=== PATIENT | female | born 1955 | race Caucasian/White ===

== ENCOUNTER 2023-12-25 14:03 | Emergency (ER) | payer MEDICARE, SELFPAY ==
[2023-12-25 14:33] VITALS: BP 130/80; PULSE 80; RESP 16; TEMP 36.3; O2SAT 100
--- NOTE | 2023-12-25 14:47 | ED.GENADULT ---
HPI - General Adult General Chief complaint: Urogenital-Female Stated complaint: uti Time Seen by Provider: 12/25/23 14:47 Source: patient, RN notes reviewed and old records reviewed Mode of arrival: ambulatory Limitations: no limitations History of Present Illness HPI narrative: 68-year-old female presents to the [facility] with complaints lower abdominal discomfort that started at 5:00 a.m. this morning. States that she did take a Tylenol and 1 Macrobid that she had. Patient states that she feels more bloated he. Denies any pain or burning with urination. Last bowel movement was this morning which she reports is normal Related Data Home Medications Medication Instructions Recorded Confirmed cyanocobalamin (vitamin B-12) 5,000 mcg sublingual DAILY 06/13/19 12/25/23 5,000 mcg sublingual tablet (Vitamin B-12) omeprazole 20 mg capsule,delayed 20 mg PO DAILY 06/13/19 12/25/23 release cholecalciferol (vitamin D3) 50 2,000 unit PO DAILY 07/26/19 12/25/23 mcg (2,000 unit) tablet melatonin 3 mg tablet 15 mg PO QHS 04/30/22 12/25/23 Allergies Allergy/AdvReac Type Severity Reaction Status Date / Time Sulfa (Sulfonamide Allergy Unknown Unknown Verified 12/25/23 15:01 Antibiotics) Review of Systems Review of Systems: All systems reviewed & are unremarkable except as noted in HPI and below Constitutional: Constitutional: Reports no additional constitutional complaints Eyes: Eyes: Reports no additional eye complaints ENT: Reports system reviewed and no additional complaints, except as documented Cardiovascular: Cardiovascular: Reports no additional cardiovascular complaints, Denies chest pain and Denies dyspnea Respiratory: Respiratory: Reports no additional respiratory complaints, Denies chest congestion, Denies cough and Denies dyspnea Gastrointestinal: Gastrointestinal: Reports as per HPI, Reports abdominal pain, Denies nausea and Denies vomiting Genitourinary: Genitourinary: Reports no additional female genitourinary complaints, Denies nocturia, Denies dysuria, Denies flank pain, Denies urinary incontinence and Denies urinary urgency Musculoskeletal: Musculoskeletal: Reports no additional musculoskeletal complaints Integumentary/Breasts: Skin/Breast: Reports system reviewed and no additional complaints, except as docu Neurologic: Reports system reviewed and no additional complaints, except as documented Psychiatric: Psychiatric: Reports no additional psychiatric complaints Allergic/Immunologic: Allergic/Immunologic: Reports no additional allergic/immunologic complaints [facility] Past Medical History Medical History (Updated 12/25/23 @ 15:05 by Minal Gomez APRN) Anxiety ~2012 GERD without esophagitis ~2012 History of torn meniscus of left knee Ulcerative colitis ~2009. Follows with Dr Thomas. Last colonoscopy 10/2018. Vitamin D deficiency Surgical History Surgical History H/O: hysterectomy ~1994 History of tonsillectomy Age 7 Family History Family History Father Family history of atrial fibrillation pacemaker Mother Cerebrovascular accident brain bleed Son No problems noted. Social History Social History Smoking status: Never smoker Second hand tobacco smoke exposure: No Alcohol intake: current Substance use: never Substance use type: does not use Lack of Transportation: No Lack of Food: Never True Current Housing: I Have Housing Concerned About Future Housing: No Difficulty Paying Gas/Electric Bills: No Difficulty Paying for Meds: No Currently Unemployed: No Education: Trade/Vocational Certificate Difficulty w/ Childcare or Family Care: No Living arrangements: with family Occupation/Education: retired Gender identity (if verbalized by the patient
== END 2023-12-25 15:07 | disposition home or self-care (01) ==
PROVIDERS: Emergency Provider Nurse Practitioner; PCP Family Medicine
DX: R10.31 Right lower quadrant pain (principal); R10.32 Left lower quadrant pain; R14.0 Abdominal distension (gaseous); K21.9 Gastro-esophageal reflux disease without esophagitis; E55.9 Vitamin D deficiency, unspecified
CPT/HCPCS: 81003; 87086; 99213; G0463

== ENCOUNTER 2024-04-12 06:49 | Observation (INO) | payer MEDICARE, SELFPAY ==
--- NOTE | ~2024-04-12 | CT_ITS ---
CT of the Abdomen and Pelvis: Indication: Abdominal pain Technique: 2.5 mm axial scans were obtained through the abdomen and pelvis following intravenous adm inistration of 100 cc of Omnipaque 350. Dose reduction technique was used on this scan by utilizing a utomated exposure control and iterative reconstruction technique. The dose-length product (DLP) was 6 00.45 mGy-cm. Findings: Scans through the lung bases are unremarkable. There is a 3.3 x 2.0 cm hypodense, noncystic mass at the anterior margin of the liver superiorly (axi al image 27), indeterminate. The spleen, pancreas, gallbladder, adrenals and kidneys are within mitzi l limits. There are atherosclerotic calcifications of the aorta. No lymphadenopathy. There is wall thickening and pericolic inflammatory change of the distal sigmoid colon/rectum. Suspec jordyn 2.2 cm intramural abscess along the left side (axial image 128). No free air evident. No bowel ob struction. Images through the pelvis were performed. Urinary bladder unremarkable. Status post probable hysterec linda. No adnexal mass evident. Mild L1 compression L4 present, likely chronic. Impression: Acute diverticulitis versus other colitis at the distal sigmoid colon/rectum. Suspected 2.2 cm intram ural abscess, versus prominent diverticulum, at the left side of the colon in this region. 3.3 x 2.0 cm indeterminate hepatic mass, as noted above. Comparison with any outside CT scans to eval uate for chronicity of this lesion would be useful. In the absence of such comparisons, follow-up pre and postcontrast hepatic MR recommended for further evaluation. Reviewed, dictated and finalized at location . Impression: Acute diverticulitis versus other colitis at the distal sigmoid colon/rectum. S uspected 2.2 cm intramural abscess, versus prominent diverticulum, at the left side of the colon in this region. 3.3 x 2.0 cm indeterminate hepatic mass, as noted above. Comparison with any ou tside CT scans to evaluate for chronicity of this lesion would be useful. In th e absence of such comparisons, follow-up pre and postcontrast hepatic MR recomm ended for further evaluation.
[2024-04-12 07:06] VITALS: BP 138/76; PULSE 100; RESP 16; TEMP 36.4; O2SAT 99
[2024-04-12 07:10] LABS: Basophils Absolute Auto 0.1 K/mm3 (0.0-0.1); Basophils Percent Auto 0.4 % (0.2-1.2); Eosinophils Absolute Auto 0.2 K/mm3 (0-0.3); Eosinophils Percent Auto 1.1 % (0-4.4); Hematocrit 43.6 % (37.0-47.0); Hemoglobin 15.1 g/dL (12.0-15.0); Immature Granulocyte Absolute 0.08 K/mm3 (0.00-0.031); Immature Granulocyte Percent A 0.6 % (0-0.5); Lymphocytes Absolute Auto 2.55 K/mm3 (0.9-3.2); Lymphocytes Percent Auto 18.8 % (18.3-44.2); Mean Corpuscular HGB Conc 34.6 g/dl (32-36); Mean Corpuscular Hemoglobin 31.5 pg (26-34); Mean Platelet Volume 8.5 fl (7.4-10.4); Monocytes Absolute Auto 1.2 K/mm3 (0.1-0.6); Monocytes Percent Auto 9.1 % (2.6-8.5); Neutrophils Absolute Auto 9.5 K/mm3 (1.3-6.7); Platelet Count Result 330 k/mm3 (150-375); Red Blood Count 4.79 M/mm3 (4.2-5.4); Red Cell Distribution Width 12.3 % (11.5-14.5); White Blood Count 13.6 K/mm3 (4.5-10.0)
[2024-04-12 07:20] LABS: Alanine Aminotransferase 15 U/L (6-35); Albumin Level 4.1 g/dL (3.5-5.1); Alkaline Phosphatase 67 U/L (38-126); Anion Gap 10 mmol/L (4-12); Aspartate Amino Transferase 22 U/L (14-36); Bilirubin,Total 1.2 mg/dL (0.2-1.3); Blood Urea Nitrogen 12 mg/dL (7-17); Carbon Dioxide 22 mmol/L (22-30); Chloride 106 mmol/L (98-107); Estimated CRCL calculation 64 ml/min; Estimated Glomerular Filt Rate > 60; Glucose 98 mg/dL (65-110); Lipase 102 U/L (23-300); Potassium 3.9 mmol/L (3.4-5.0); Sodium 138 mmol/L (137-145)
[2024-04-12 07:30] LABS: Add Urine Microscopic? YES; Appearance Urine Cloudy (Clear); Bacteria Urine 3+ /hpf; Bilirubin Urine Negative (Negative); Blood Urine Negative (Negative); Color Urine Dark Yellow (Yellow); Glucose Urine UA Negative (Negative); Ketones Urine 1+ mg/dL (Negative); Leukocyte Esterase Ur Trace LEU/UL (Negative); Need Manual Microscopic Reviewed; Nitrate Urine Negative (Negative); Protein Urine Negative (Negative); RBC Urine 0-2 /hpf (0-2); Specific Grav Ur 1.015 (1.001-1.035); Squamous Epithelial Cell Urine Few /hpf (Few); Urobilinogen Urine 0.2 mg/dL (<2.0); pH Urine 7.5 (5.0-9.0)
[2024-04-12 07:34] LABS: Amorphous Sediment Urine Few
--- NOTE | 2024-04-12 07:49 | ED.ABDPAIN ---
HPI - Abdominal Pain General Chief Complaint: Abdominal Pain Stated Complaint: stomach cramps Time Seen by Provider: 04/12/24 07:18 History of Present Illness HPI narrative: Pt presents with lower abdominal pain for two days. Pt thinks it is constipation as it is intermittent and she has not had a full BM for several days. Pt took a recent trip and did not move bowels and when she got home she still did not so she took laxative yesterday but no results. Pt also has history of UC but says this is in remission. Pt deneis fever or black or bloody stools. Related Data Home Medications Medication Instructions Recorded Confirmed cyanocobalamin (vitamin B-12) 5,000 mcg PO DAILY 06/13/19 04/12/24 5,000 mcg sublingual tablet (Vitamin B-12) omeprazole 20 mg capsule,delayed 20 mg PO DAILY 06/13/19 04/12/24 release cholecalciferol (vitamin D3) 50 2,000 unit PO DAILY 07/26/19 04/12/24 mcg (2,000 unit) tablet melatonin 3 mg tablet 15 mg PO QHS 04/30/22 04/12/24 Allergies Allergy/AdvReac Type Severity Reaction Status Date / Time Sulfa (Sulfonamide Allergy Unknown Gastrointestinal Verified 04/12/24 14:29 Antibiotics) Upset Review of Systems Review of Systems: All systems reviewed & are unremarkable except as noted in HPI and below PMFSH Past Medical History Medical History (Updated 04/12/24 @ 14:53 by Juana Moser PA-C) Anxiety GERD without esophagitis History of endometriosis History of torn meniscus of left knee Ulcerative colitis (2009) Last colonoscopy 10/2018. Vitamin D deficiency Surgical History Surgical History (Updated 04/12/24 @ 14:44 by Juana Moser PA-C) History of hysterectomy (1994) History of laparoscopy For endometriosis History of tonsillectomy Age 7 Family History Family History Father Family history of atrial fibrillation pacemaker Mother Cerebrovascular accident brain bleed Son No problems noted. Social History Social History (Updated 04/12/24 @ 14:45 by Juana Moser PA-C) Social History: Surrogate medical decision maker: Federico Doan, spouse. Code status: Full code. Smoking status: Never smoker Second hand tobacco smoke exposure: No Alcohol intake: current Drinks per week: 2 Substance use: never Substance use type: does not use Do You Feel Safe in your Home?: Yes Lack of Transportation: No Lack of Food: Never True Current Housing: I Have Housing Concerned About Future Housing: No Difficulty Paying Gas/Electric Bills: No Difficulty Paying for Meds: No Currently Unemployed: No Education: Associate Degree Difficulty w/ Childcare or Family Care: No Living arrangements: with family Occupation/Education: retired Spiritual care concerns: No Agree to blood products: Yes Exam Const: General: healthy appearing and no acute distress Nutritional Appearance: well nourished Orientation/consciousness: patient oriented x3 Limitations: no limitations Resp: Effort & Inspection: normal respiratory effort Auscultation: clear to auscultation bilaterally Cardio: Rate: regular rate Rhythm: regular rhythm GI: GI Palp: Yes Soft to palpation and Yes Tenderness to palpation present (GI) (mild lower abdominal pain) Auscultation: normal bowel sounds Back/Spine/Pelvis: Back: no CVA tenderness Skin: General skin exam: normal color Rashes: no rashes Wounds: no wounds Neuro: General: patient oriented x3, moves all extremities, no meningeal signs, no focal motor deficits and CN's II-XI intact bilaterally Cranial nerves: Yes Nystagmus not present Speech: normal speech Extrem: General: normal to inspection and no clubbing, cyanosis or edema Psych: Mental Status: mental status grossly normal Affect: normal affect Attitude: cooperative Course Vital Signs Vital signs: Vital Signs Temperature 97.6 F 04/12/24 07:06
[2024-04-12 08:00] VITALS: BP 126/72; PULSE 81; RESP 16; TEMP 36.6; O2SAT 95
[2024-04-12] MEDS: ONDANSETRON INJ 4 MG/2 ML VIAL IV PUSH (08:12)
[2024-04-12] MEDS: fentaNYL CITRATE INJ (*CRX) 100 MCG/2 ML VIAL 50 MCG IV PUSH (08:13)
[2024-04-12 09:00] VITALS: BP 136/73; PULSE 79; RESP 18; O2SAT 96
[2024-04-12 10:00] VITALS: BP 119/64; PULSE 80; RESP 18; O2SAT 96
--- NOTE | 2024-04-12 13:40 | PC.NURSE ---
Report called to FRANTZ Dey. All questions answered at this time.
[2024-04-12] MEDS: PIPERACILLIN/TAZ 4.5G/NS 100ML 4.5 GM/100 ML BAG IVPB ×3 (13:44→23:32)
--- NOTE | 2024-04-12 13:50 | PM.IMHP ---
H&P: HPI History of Present Illness Date/Time: 04/12/24 13:50 Chief Complaint: Abdominal pain. Narrative: This is very pleasant 68-year-old female with ulcerative colitis which has been in remission for several years on balsalazide, anxiety, and gastroesophageal reflux disease who presented to the emergency department via private vehicle for evaluation of abdominal pain. The patient provides the following history. She gives a several day history of soreness in the mid to lower part of the abdomen. Initially she attributed her symptoms to constipation as she has not had a good bowel movement for several days however stool softeners and laxatives did not provide her with much relief. She reports chills but denies fever and sweats. Appetite has been fair and she denies nausea and vomiting. She has not noticed any blood or mucus in the stool. No dysuria or hematuria. In the ED: She was afebrile on arrival with stable vital signs. CMP and CBC were pretty unremarkable aside from a WBC count of 13.6 and hemoglobin of 15.1. Urinalysis was positive for 1+ ketones, trace leukocyte esterase, 11 to 20 WBC, and 3+ bacteria. Some sediment squamous cells were noted on microscopy. CT of the abdomen and pelvis showed acute diverticulitis versus other colitis at the distal sigmoid colon/rectum with a suspected 2.2 cm intramural abscess versus prominent diverticulum. 3.3 x 2.0 cm intermediate hepatic masses also noted. She was given a dose piperacillin/tazobactam is being admitted in this setting for further treatment. Review of Systems Review of Systems: 12 systems were reviewed and are negative except for as per HPI. [facility] Past Medical History Medical History (Updated 04/12/24 @ 14:53 by Juana Moser PA-C) Anxiety GERD without esophagitis History of endometriosis History of torn meniscus of left knee Ulcerative colitis (2009) Last colonoscopy 10/2018. Vitamin D deficiency Surgical History Surgical History (Updated 04/12/24 @ 14:44 by Juana Moser PA-C) History of hysterectomy (1994) History of laparoscopy For endometriosis History of tonsillectomy Age 7 Family History Family History Father Family history of atrial fibrillation pacemaker Mother Cerebrovascular accident brain bleed Son No problems noted. Social History Social History (Updated 04/12/24 @ 14:45 by Juana Moser PA-C) Social History: Surrogate medical decision maker: Federico Doan, spouse. Code status: Full code. Smoking status: Never smoker Second hand tobacco smoke exposure: No Alcohol intake: current Drinks per week: 2 Substance use: never Substance use type: does not use Do You Feel Safe in your Home?: Yes Lack of Transportation: No Lack of Food: Never True Current Housing: I Have Housing Concerned About Future Housing: No Difficulty Paying Gas/Electric Bills: No Difficulty Paying for Meds: No Currently Unemployed: No Education: Associate Degree Difficulty w/ Childcare or Family Care: No Living arrangements: with family Occupation/Education: retired Spiritual care concerns: No Agree to blood products: Yes Meds Home Medications and Allergies Home Medications Medication Instructions Recorded Confirmed Type cyanocobalamin (vitamin B-12) 5,000 mcg PO DAILY 06/13/19 04/12/24 History 5,000 mcg sublingual tablet (Vitamin B-12) omeprazole 20 mg capsule,delayed 20 mg PO DAILY 06/13/19 04/12/24 History release cholecalciferol (vitamin D3) 50 2,000 unit PO DAILY 07/26/19 04/12/24 History mcg (2,000 unit) tablet melatonin 3 mg tablet 15 mg PO QHS 04/30/22 04/12/24 History buspirone 5 mg tablet 5 mg PO DAILY PRN anxiety #90 tabs 06/15/23 04/12/24 Rx balsalazide 750 mg capsule 1,500 mg PO BID 3 months #360 caps 03/30/24 04/12/24 Rx Allergies Allergy/AdvReac Type Severity Reaction Statu
[2024-04-12 14:00] VITALS: BP 168/62; PULSE 83; RESP 14; TEMP 36.3; O2SAT 99
[2024-04-12 14:08] VITALS: BMI 28.2
--- NOTE | 2024-04-12 14:13 | ADMGEN ---
This patient, Ciara Doan, was admitted to 3 Med Surg Room 315-01. Patient/family oriented to hospital policies and general routines including ID bracelet, bed and alarms, visiting hours, pain management, procedures, bathroom and other care routines, personal items, smoking policy, room service/diet, and visiting hours. Information on how to activate the Rapid Response Team has been discussed. Patient/Family are encouraged to report perceived risks to care and to ask questions if they do not understand what they are told or what they should do. Report from Estephania.
--- NOTE | 2024-04-12 14:17 | PM.CNGS ---
Assessment and Plan Assessment and plan (1) Diverticulitis: Code(s): K57.92 - Diverticulitis of intestine, part unspecified, without perforation or abscess without bleeding Status: Acute Assessment and Plan: CT scan showed distal sigmoid diverticulitis versus colitis with possible small intramural abscess versus prominent diverticulum. No evidence of perforation. This is her first episode of diverticulitis. We would recommend to continue conservative treatment with IV antibiotics. She has a moderate amount of tenderness on exam, but no diffuse peritoneal signs. No indication for surgical intervention at this time. Okay to start a clear liquid diet today. Repeat labs and exam tomorrow. (2) Liver mass: Code(s): R16.0 - Hepatomegaly, not elsewhere classified Status: Acute Assessment and Plan: Liver mass found on CT. Will need an hepatic MR to evaluate further, but this can be done as an outpatient. (3) Ulcerative colitis: Qualifiers: Ulcerative colitis location: unspecified ulcerative colitis location Digestive disease complication type: without complication Qualified Code(s): K51.90 - Ulcerative colitis, unspecified, without complications Code(s): K51.90 - Ulcerative colitis, unspecified, without complications Status: Chronic Assessment and Plan: Hx of ulcerative colitis and in remission for many years. She takes balsalazide twice daily. Her last colonoscopy was 4-5 years ago. She will likely need another colonoscopy in the next 4-6 weeks after this resolves. Plan I have discussed the patient's case and plan of care with Dr. Weiss. Thank you for allowing us to see the patient in consultation and we will continue to follow along with you. History of Present Illness Consult details Consult date: 04/12/24 Reason for consult: other (Diverticulitis with abscess) Requesting physician: Sonia Lane III, DO Narrative: This is a 68-year-old woman who presented to the ED today with complaints of left lower quadrant abdominal pain x 3 days. She first noticed mild left lower quadrant abdominal pain and bloating on Thursday, and initially thought this was related to constipation. She was vacationing in [place] and had not been eating her typical diet. She flew home Thursday and tried taking laxatives, because she still felt bloated and had mild pain. She had multiple bowel movements without improvement in her symptoms. Her pain has remained constant without any alleviating factors, therefore she came into the ED for evaluation. [place] [id number] scan of the abdomen and pelvis showed diverticulitis versus colitis of the distal sigmoid/rectum with a possible 2.2 cm intramural abscess verses prominent diverticulum. Also incidentally seen is a 3.3 x 2.0 cm liver mass. Our service was consulted for diverticulitis with possible abscess. She is seen in the ED. She denies any previous episodes of diverticulitis. She has a history of ulcerative colitis and has been in remission for many years. She is currently taking balsalazide. Her last colonoscopy was about 4-5 years ago and reportedly negative. She was told she needs another screening colonoscopy this year. Review of Systems Review of Systems: All systems reviewed & are unremarkable except as noted in HPI and below PMFSH Past Medical History Medical History Anxiety ~2012 GERD without esophagitis ~2012 History of endometriosis History of torn meniscus of left knee Ulcerative colitis ~2009. Follows with Dr Thomas. Last colonoscopy 10/2018. Vitamin D deficiency Surgical History Surgical History H/O: hysterectomy ~1994 History of laparoscopy For endometriosis History of tonsillectomy Age 7 Family History Family History (Reviewed 04/12/24 @ 14:30 by Manolo Cedeno
[2024-04-12] MEDS: LACTATED RINGERS 1,000 ML 80 ML IV CONT (15:28)
--- NOTE | 2024-04-12 15:58 | PHAR ---
Pharmacy verified home med: * Use From Home * Balsalazide 750 mg capsule take 4 capsules by mouth once daily in the morning description: large, cream colored capsule with APO B750
[2024-04-12] MEDS: BALSALAZIDE 750 MG 3000 EACH PO (16:00)
[2024-04-12] MEDS: MELATONIN 5 MG TABLET 15 MG PO (20:07)
[2024-04-12 21:50] VITALS: BP 131/70; PULSE 72; RESP 16; TEMP 36.8; O2SAT 95
[2024-04-13] MEDS: ACETAMINOPHEN 325 MG TABLET 650 MG PO (05:13)
[2024-04-13] MEDS: PIPERACILLIN/TAZ 4.5G/NS 100ML 4.5 GM/100 ML BAG IVPB ×2 (05:13→13:00)
[2024-04-13 06:00] VITALS: BP 126/69; PULSE 83; RESP 16; TEMP 36.6; O2SAT 95
[2024-04-13 07:02] LABS: Hematocrit 41.2 % (37.0-47.0); Hemoglobin 13.5 g/dL (12.0-15.0); Mean Corpuscular HGB Conc 32.8 g/dl (32-36); Mean Corpuscular Hemoglobin 30.6 pg (26-34); Mean Corpuscular Volume 93.4 fl (80-100); Mean Platelet Volume 8.5 fl (7.4-10.4); Platelet Count Result 303 k/mm3 (150-375); Red Blood Count 4.41 M/mm3 (4.2-5.4); Red Cell Distribution Width 12.1 % (11.5-14.5); White Blood Count 8.9 K/mm3 (4.5-10.0)
[2024-04-13 07:20] VITALS: O2SAT 96
[2024-04-13 07:30] LABS: Anion Gap 7 mmol/L (4-12); Blood Urea Nitrogen 10 mg/dL (7-17); Calcium 8.6 mg/dL (8.4-10.2); Carbon Dioxide 27 mmol/L (22-30); Chloride 104 mmol/L (98-107); Estimated CRCL calculation 63 ml/min; Estimated Glomerular Filt Rate > 60; Glucose 91 mg/dL (65-110); Magnesium 2.4 mg/dL (1.6-2.3); Potassium 4.1 mmol/L (3.4-5.0); Sodium 138 mmol/L (137-145)
--- NOTE | 2024-04-13 07:40 | PM.IMPN ---
Progress Note: A&P Assessment and Plan (1) Diverticulitis: Code(s): K57.92 - Diverticulitis of intestine, part unspecified, without perforation or abscess without bleeding Status: Acute Assessment and Plan: - surgery was consulted ...clear liquid diet at this time and will follow with serial abdominal exams and labs. Consider repeat CT if peritoneal signs or fevers develop. Otherwise can gradually advance diet over the next couple days and hopefully discharge home on a course of oral antibiotics. (2) Liver mass: Code(s): R16.0 - Hepatomegaly, not elsewhere classified Status: Acute (3) Ulcerative colitis: Onset Date: 2009 Qualifiers: Digestive disease complication type: without complication Ulcerative colitis location: unspecified ulcerative colitis location Qualified Code(s): K51.90 - Ulcerative colitis, unspecified, without complications Code(s): K51.90 - Ulcerative colitis, unspecified, without complications Status: Chronic (4) Abnormal urinalysis: Code(s): R82.90 - Unspecified abnormal findings in urine Status: Acute (5) GERD without esophagitis: Code(s): K21.9 - Gastro-esophageal reflux disease without esophagitis Status: Chronic (6) Anxiety: Code(s): F41.9 - Anxiety disorder, unspecified Status: Chronic Plan The patient presented to the emergency department for evaluation of several days of abdominal soreness and feelings of constipation as detailed in HPI. Labs, imaging, EKG, and all reports were personally reviewed. CT scan shows evidence of sigmoid diverticulitis versus colitis with possible small intramural abscess versus prominent diverticulum. No peritoneal signs on examination. Surgery has been consulted and they suggest serial abdominal exams and antibiotics for now. She has been started on a clear liquid diet. Continue Zosyn. Analgesics and antiemetics are available as needed. Incidentally a hepatic mass was noted on CT scan of which she will need a hepatic MR for further evaluation which can be done as an outpatient as this is likely unrelated to her current problem. Her ulcerative colitis has been in remission for years on balsalazide. She will need referral to GI on discharge for colonoscopy in the next 6 weeks or so following resolution of diverticulitis as she has not had 1 done since 2019. Urinalysis is abnormal with trace leukocyte esterase, 11 to 20 WBC, and 3+ bacteria however the specimen looks contaminated with squamous cells and sediment and she has no symptoms to suggest active UTI. Time Spent With Patient Time with patient: Greater than 35 minutes Subjective Date/time seen: 04/13/24 07:40 Interval history: 04/13 pt is seen and examined. Gen surg was consulted- recommendations to advance diet- monitor- Agree with clear liquid diet at this time and will follow with serial abdominal exams and labs. Consider repeat CT if peritoneal signs or fevers develop. Otherwise can gradually advance diet over the next couple days and hopefully discharge home on a course of oral antibiotics. Review of Systems Review of Systems: 12 systems were reviewed and are negative except for as per HPI. Exam Narrative: General: Well-developed, nontoxic-appearing female HEENT: PERRL, EOMI. Sclera anicteric. Tacky mucous membranes. Neck: Supple. Respiratory: Lungs are clear to auscultation bilaterally. Cardiovascular: Regular rate and rhythm with S1-S2. Gastrointestinal: Abdomen is soft and slightly distended with positive bowel sounds. She is tender to palpation mostly on the left side of the abdomen lower quadrant. No guarding or rebound tenderness. No organomegaly or masses palpated. Skin: Warm, dry, and milton. Extremities: No cyanosis, clubbing, or edema. Radial and pedal pulses intact. Neurological: Alert. Cranial nerves 2-12 are grossly intact. No gross focal deficits to casual conversation. Psychiatric: Pleasan
[2024-04-13] MEDS: CYANOCOBALAMIN 1,000 MCG TABLET 5000 MCG PO (08:26)
[2024-04-13] MEDS: CHOLECALCIFEROL 1,000 UNITS TABLET 2000 UNITS PO (08:26)
[2024-04-13] MEDS: BALSALAZIDE 750 MG 3000 EACH PO (08:29)
[2024-04-13] MEDS: PANTOPRAZOLE 40 MG TABLET PO (08:30)
--- NOTE | 2024-04-13 10:59 | PM.PNGS ---
Progress Note: A&P Assessment and Plan (1) Diverticulitis: Code(s): K57.92 - Diverticulitis of intestine, part unspecified, without perforation or abscess without bleeding Status: Acute Assessment and Plan: Clinically improving with antibiotics Advanced diet as tolerated to a low-fiber diet Consult dietitian for education Okay to discharge the patient on oral antibiotics later today if she is tolerating a low-fiber diet (2) Liver mass: Code(s): R16.0 - Hepatomegaly, not elsewhere classified Status: Acute Assessment and Plan: Liver mass found on CT. Will need an hepatic MR to evaluate further, but this can be done as an outpatient. (3) Ulcerative colitis: Onset Date: 2009 Qualifiers: Ulcerative colitis location: unspecified ulcerative colitis location Digestive disease complication type: without complication Qualified Code(s): K51.90 - Ulcerative colitis, unspecified, without complications Code(s): K51.90 - Ulcerative colitis, unspecified, without complications Status: Chronic Assessment and Plan: Hx of ulcerative colitis and in remission for many years. She takes balsalazide twice daily, which was continued. Her last colonoscopy was 4-5 years ago. She will likely need another colonoscopy in the next 4-6 weeks after this resolves. Subjective Subjective Date/Time Seen: 04/13/24 10:59 Patient reports: no new complaints, feels better, pain is less, tolerating liquids well, flatus, no bowel movement (last BM yesterday in ED after enema) and afebrile Interval history: Patient feeling better today. No abdominal pain this morning, only tenderness to palpation in the suprapubic area. Exam Const: General: comfortable and no acute distress Orientation/consciousness: patient oriented x3 GI: Inspection: non-distended GI Palp: Yes Soft to palpation, Yes Tenderness to palpation present (GI) (mild suprapubic tenderness, improved) and No Guarding due to palpation present (GI) Auscultation: normal bowel sounds Objective Data Vital Signs Vital Signs: Vital Signs - 24 hr 04/12/24 14:00 04/12/24 21:50 04/13/24 06:00 Temperature 97.3 F L 98.2 F 97.8 F Pulse Rate 83 72 83 Respiratory Rate 14 16 16 Blood Pressure 168/62 H 131/70 126/69 Pulse Oximetry 99 95 95 Oxygen Delivery Fraction of Inspired Oxygen 04/13/24 07:20 04/13/24 08:00 Temperature Pulse Rate Respiratory Rate Blood Pressure Pulse Oximetry 96 Oxygen Delivery Room Air Room Air Fraction of Inspired Oxygen 21 Intake/Output Intake/Output: Intake & Output 04/10/24 04/11/24 04/12/24 04/13/24 23:59 23:59 23:59 23:59 Intake Total 680 1840 Balance 680 1840 Meds/Results Medications: Active Medications Generic Name Dose Route Start Last Admin Trade Name Freq PRN Reason Stop Dose Admin Acetaminophen 650 mg 04/12/24 14:36 04/13/24 05:13 Acetaminophen 325 Mg Tablet PO 650 mg Q6H PRN Administration Mild Pain (1-3) or Fever Hydrocodone Bitart/Acetaminophen 1 tab 04/12/24 14:36 Hydrocodone/Acetaminophen (*Crx) 5-325 Mg Tablet PO Q6H PRN Pain Rated 4-6 Buspirone HCl 5 mg 04/12/24 14:54 Buspirone Hcl 5 Mg Tablet PO DAILY PRN anxiety Cyanocobalamin 5,000 mcg 04/13/24 09:00 04/13/24 08:26 Cyanocobalamin 1,000 Mcg Tablet PO 5,000 mcg DAILY NONI Administration Enoxaparin Sodium 40 mg 04/13/24 09:00 04/13/24 08:26 Enoxaparin 40 Mg/0.4 Ml Syringe SUB-Q Not Given DAILY NONI Piperacillin Sod/Tazobactam Sod 4.5 gm in 100 mls @ 200 mls/hr 04/12/24 18:00 04/13/24 05:43 Zosyn 4.5 Gm/Ns 100 Ml IVPB Infused Q6HR NONI Infusion Melatonin 15 mg 04/12/24 21:00 04/12/24 20:07 Melatonin 5 Mg Tablet PO 15 mg QHS NONI Administration Morphine Sulfate 2 mg 04/12/24 14:36 Morphine Sulfate (*Crx) 2 Mg/Ml Inj IV PUSH Q4H PRN Pain Rated 7-10 * Home Med * 3,000 mg 04/12/24 15:5
[2024-04-13 14:00] VITALS: BP 116/60; PULSE 83; RESP 18; TEMP 36.3; O2SAT 98
--- NOTE | 2024-04-13 14:19 | PM.DS ---
DS: Admitting Diagnosis Discharge Date 04/13 Admitting Diagnosis abd pain DS: Discharge Diagnosis Discharge Diagnosis (1) Diverticulitis: Code(s): K57.92 - Diverticulitis of intestine, part unspecified, without perforation or abscess without bleeding Status: Acute Assessment and Plan: - surgery was consulted ...clear liquid diet at this time and will follow with serial abdominal exams and labs. Consider repeat CT if peritoneal signs or fevers develop. Otherwise can gradually advance diet over the next couple days and hopefully discharge home on a course of oral antibiotics. (2) Liver mass: Code(s): R16.0 - Hepatomegaly, not elsewhere classified Status: Acute (3) Ulcerative colitis: Onset Date: 2009 Qualifiers: Digestive disease complication type: without complication Ulcerative colitis location: unspecified ulcerative colitis location Qualified Code(s): K51.90 - Ulcerative colitis, unspecified, without complications Code(s): K51.90 - Ulcerative colitis, unspecified, without complications Status: Chronic (4) Abnormal urinalysis: Code(s): R82.90 - Unspecified abnormal findings in urine Status: Acute (5) GERD without esophagitis: Code(s): K21.9 - Gastro-esophageal reflux disease without esophagitis Status: Chronic (6) Anxiety: Code(s): F41.9 - Anxiety disorder, unspecified Status: Chronic Plan The patient presented to the emergency department for evaluation of several days of abdominal soreness and feelings of constipation as detailed in HPI. Labs, imaging, EKG, and all reports were personally reviewed. CT scan shows evidence of sigmoid diverticulitis versus colitis with possible small intramural abscess versus prominent diverticulum. No peritoneal signs on examination. Surgery has been consulted and they suggest serial abdominal exams and antibiotics for now. She has been started on a clear liquid diet. Continue Zosyn. Analgesics and antiemetics are available as needed. Incidentally a hepatic mass was noted on CT scan of which she will need a hepatic MR for further evaluation which can be done as an outpatient as this is likely unrelated to her current problem. Her ulcerative colitis has been in remission for years on balsalazide. She will need referral to GI on discharge for colonoscopy in the next 6 weeks or so following resolution of diverticulitis as she has not had 1 done since 2019. Urinalysis is abnormal with trace leukocyte esterase, 11 to 20 WBC, and 3+ bacteria however the specimen looks contaminated with squamous cells and sediment and she has no symptoms to suggest active UTI. DS: Summary Hospital Course Hospital Course: Pt was admitted for Diverticulitis of intestine: - she clinically improved with antibiotics - Advancing diet as tolerated to a low-fiber diet- per surgery -okay to discharge on oral antibiotics later today if she is tolerating a low-fiber diet - Liver mass: Liver mass found on CT. Will need an hepatic MR to evaluate further, but this can be done as an outpatient. - Ulcerative colitis location: unspecified ulcerative colitis location Her last colonoscopy was 4-5 years ago. She will likely need another colonoscopy in the next 4-6 weeks after this resolves. Status at Discharge Functional status at discharge: independent ambulation Overall status at discharge: patient is progressing back to baseline Time Spent with Patient Time attestation: Total time spent providing and/or coordinating discharge services: Time spent: Greater than 30 minutes Exam Narrative: General: Well-developed, nontoxic-appearing female HEENT: PERRL, EOMI. Sclera anicteric. Tacky mucous membranes. Neck: Supple. Respiratory: Lungs are clear to auscultation bilaterally. Cardiovascular: Regular rate and rhythm with S1-S2. Gastrointestinal: Abdomen is soft and slightly distended with positive bowel sounds.
== END 2024-04-13 17:30 | disposition home or self-care (01) ==
LOC: ANHED 12:39 → ANH3MEDSUR 13:24
PROVIDERS: Emergency Medicine; Nurse Practitioner Family; Physician Assistant; Admitting Provider Internal Medicine; Emergency Provider Emergency Medicine; PCP Family Medicine; Visit Provider Internal Medicine
DX: K57.92 Diverticulitis of intestine, part unspecified, without perforation or abscess without bleeding (principal); R16.0 Hepatomegaly, not elsewhere classified; K51.90 Ulcerative colitis, unspecified, without complications; R82.90 Unspecified abnormal findings in urine; K21.9 Gastro-esophageal reflux disease without esophagitis; F41.9 Anxiety disorder, unspecified; E55.9 Vitamin D deficiency, unspecified; Z79.899 Other long term (current) drug therapy
CPT/HCPCS: 36415; 74177; 80048; 80053; 81001; 83690; 83735; 85025; 85027; 87086; 96365; 96375; 99285; A9270; G0378; J2405; J2543; J3010; J7120; Q9967

== ENCOUNTER 2024-05-21 08:30 | Outpatient (CLI) | payer MEDICARE, SELFPAY ==
--- NOTE | ~2024-05-21 | MR_ITS ---
EXAMINATION: MR abdomen wo/w con DATE: 05/21/2024 10:33 INDICATION: Hepatomegaly, not elsewhere classified. Liver mass. TECHNIQUE: Magnetic resonance imaging (MRI) of the abdomen was performed without and with 16 mL Multi Binta intravenous contrast. COMPARISON: CT abdomen and pelvis 04/12/2024 FINDINGS: There is a 3.9 cm cyst in the liver. There is a gallstone in the gallbladder, which is normal in size . The spleen, pancreas, and adrenal glands are normal. There are cysts in the kidneys measuring up to 4 mm. There are no dilated loops of bowel. There are no pathologically enlarged lymph nodes. There i s no free intraperitoneal fluid. IMPRESSION: 1. 3.9 cm benign cyst in the liver correlating with the CT abnormality. 2. Cholelithiasis. Reviewed, dictated and finalized at location A. [facility]
--- NOTE | ~2024-05-21 | MR_ITS ---
EXAMINATION: MR pelvis wo/w con DATE: 05/21/2024 10:33 INDICATION: Diverticulitis of large intestine with perforation and abscess. TECHNIQUE: Magnetic resonance imaging (MRI) of the pelvis was performed without and with 16 mL MultiH ance intravenous contrast. COMPARISON: CT abdomen and pelvis 04/12/2024 FINDINGS: There are no dilated loops of bowel. There is diverticulosis of the colon without evidence of diverti culitis. There is no ascites. There are no pathologically enlarged lymph nodes. IMPRESSION: 1. No abscess. Reviewed, dictated and finalized at location A. [facility] IMPRESSION: 1. No abscess.
== END 2024-05-21 08:31 | disposition home or self-care (01) ==
PROVIDERS: PCP Family Medicine; Visit Provider Family Medicine
DX: R16.0 Hepatomegaly, not elsewhere classified (principal); K57.20 Diverticulitis of large intestine with perforation and abscess without bleeding; K80.20 Calculus of gallbladder without cholecystitis without obstruction
CPT/HCPCS: 72197; 74183; A9577

== ENCOUNTER 2024-06-15 03:04 | Day surgery (SDC) | payer MEDICARE, SELFPAY ==
[2024-05-25 09:03] VITALS: BMI 25.9
[2024-06-15 06:18] VITALS: BP 135/74; PULSE 94; RESP 20; TEMP 36.2; O2SAT 100
[2024-06-15] MEDS: LACTATED RINGERS 1,000 ML 150 ML IV CONT (06:30)
--- NOTE | 2024-06-15 07:23 | P.PNAN_ITS ---
Anes - Initial Pre Proc Eval Procedure: Operation Date: 06/15/24 07:30 Proposed Procedures p Colonoscopy - Chriss العلي MD Date/Time: 06/15/24 07:23 Surgeon: Chriss العلي MD Pre Op Diagnosis: diverticulitis with perforation and abscess w/o Patient Data Age: 69 Gender: F Height: 1.7 m Weight: 75.3 kg Last Vital Signs Temp 36.2 C L 06/15/24 06:18 Pulse 94 06/15/24 06:18 Resp 20 06/15/24 06:18 BP 135/74 06/15/24 06:18 Pulse Ox 100 06/15/24 06:18 O2 Del Method Room Air 06/15/24 06:18 Allergies Allergy/AdvReac Type Severity Reaction Status Date / Time Sulfa (Sulfonamide Allergy Unknown Gastrointestinal Verified 06/15/24 06:13 Antibiotics) Upset Home Medications ?Medication ?Instructions ?Recorded ?Confirmed ?Type cyanocobalamin (vitamin B-12) 5,000 mcg PO DAILY 06/13/19 06/15/24 History 5,000 mcg sublingual tablet (Vitamin B-12) omeprazole 20 mg capsule,delayed 20 mg PO DAILY 06/13/19 06/15/24 History release cholecalciferol (vitamin D3) 50 2,000 unit PO DAILY 07/26/19 06/15/24 History mcg (2,000 unit) tablet buspirone 5 mg tablet 5 mg PO DAILY PRN anxiety #90 tabs 06/15/23 05/25/24 Rx melatonin 3 mg tablet 3 mg PO QHS 04/26/24 06/15/24 History prasterone (dhea) 10 mg tablet 10 mg PO DAILY 04/26/24 06/15/24 History progesterone micronized 100 mg 100 mg PO QAM 04/26/24 06/15/24 History capsule testosterone 50 mg implant pellet 65 mg implant DAILY 04/26/24 06/15/24 History thyroid (pork) 150 mg capsule 150 mg PO DAILY 04/26/24 06/15/24 History lactobacillus combination no.9 4 4,000 mmu cells PO DAILY 05/03/24 06/15/24 History billion cell capsule (Adult 50 Plus Probiotic) balsalazide 750 mg capsule 3,000 mg (4 x 750 mg) PO DAILY 3 05/06/24 06/15/24 Rx months #360 caps Patient hx anesthesia problems: none Family hx anesthesia problems: none Results Review: All pre-operative results and documents have been reviewed as part of the pre- operative evaluation. [facility] Past Medical History Medical History History of endometriosis Vitamin D deficiency History of torn meniscus of left knee GERD without esophagitis Ulcerative colitis (2009) Last colonoscopy 10/2018. Anxiety Surgical History Surgical History History of hysterectomy (1994) History of laparoscopy For endometriosis History of tonsillectomy Age 7 Family History Family History Father Family history of atrial fibrillation pacemaker Mother Cerebrovascular accident brain bleed Son No problems noted. Social History Social History Social History: Surrogate medical decision maker: Federico Doan, spouse. Code status: Full code. Smoking status: Never smoker Second hand tobacco smoke exposure: No Alcohol intake: current Drinks per week: 2 Substance use: never Substance use type: does not use Do You Feel Safe in your Home?: Yes Lack of Transportation: No Lack of Food: Never True Current Housing: I Have Housing Concerned About Future Housing: No Difficulty Paying Gas/Electric Bills: No Difficulty Paying for Meds: No Currently Unemployed: No Education: Associate Degree Difficulty w/ Childcare or Family Care: No Living arrangements: with family Occupation/Education: retired Spiritual care concerns: No Agree to blood products: Yes Anes - Eval Final PreProcedure Day of Procedure 06/15/24 07:23 Patient weight: overweight Heart: regular rate and rhythm Lungs: clear to auscultation Airway: Mallampati scale class II Neurological: alert and oriented Last oral intake: >/= 8 hours ASA classification: III Emergent: no Anesthetic plan: proceed Anesthesia type and monitoring: general GIVS and standard monitoring Results Review: All pre-operative results and documents have been reviewed as part of the pre- operative evaluation. Informed Consent: The patient's anesthetic plan and its attendant risks and benefits were discussed with the patient/family/POA. Questions were solicited and answers provided to the satisfaction of the patient/family/POA.
--- NOTE | 2024-06-15 07:33 | PM.IMHP ---
H&P: HPI History of Present Illness Date/Time: 06/15/24 07:33 Chief Complaint: History of colon polyps Narrative: The patient has a history of colonic polyps, the last colonoscopy was 5 years ago. She also has a longstanding history of ulcerative colitis, currently treated with balsalazide 750 mg, 4 tablets per day, well controlled, no recent flares. In addition, the patient had an episode of acute diverticulitis in April, being treated with 2 weeks of antibiotics. This was her 1st episode of diverticulitis. She is currently asymptomatic from a GI standpoint. Review of Systems Review of Systems: All systems reviewed & are unremarkable except as noted in HPI and below PMFSH Past Medical History Medical History History of endometriosis Vitamin D deficiency History of torn meniscus of left knee GERD without esophagitis Ulcerative colitis (2009) Last colonoscopy 10/2018. Anxiety Surgical History Surgical History History of hysterectomy (1994) History of laparoscopy For endometriosis History of tonsillectomy Age 7 Family History Family History Father Family history of atrial fibrillation pacemaker Mother Cerebrovascular accident brain bleed Son No problems noted. Social History Social History Social History: Surrogate medical decision maker: Federico Corralelijahluisito, spouse. Code status: Full code. Smoking status: Never smoker Second hand tobacco smoke exposure: No Alcohol intake: current Drinks per week: 2 Substance use: never Substance use type: does not use Do You Feel Safe in your Home?: Yes Lack of Transportation: No Lack of Food: Never True Current Housing: I Have Housing Concerned About Future Housing: No Difficulty Paying Gas/Electric Bills: No Difficulty Paying for Meds: No Currently Unemployed: No Education: Associate Degree Difficulty w/ Childcare or Family Care: No Living arrangements: with family Occupation/Education: retired Spiritual care concerns: No Agree to blood products: Yes Meds Home Medications and Allergies Home Medications ?Medication ?Instructions ?Recorded ?Confirmed ?Type cyanocobalamin (vitamin B-12) 5,000 mcg PO DAILY 06/13/19 06/15/24 History 5,000 mcg sublingual tablet (Vitamin B-12) omeprazole 20 mg capsule,delayed 20 mg PO DAILY 06/13/19 06/15/24 History release cholecalciferol (vitamin D3) 50 2,000 unit PO DAILY 07/26/19 06/15/24 History mcg (2,000 unit) tablet buspirone 5 mg tablet 5 mg PO DAILY PRN anxiety #90 tabs 06/15/23 05/25/24 Rx melatonin 3 mg tablet 3 mg PO QHS 04/26/24 06/15/24 History prasterone (dhea) 10 mg tablet 10 mg PO DAILY 04/26/24 06/15/24 History progesterone micronized 100 mg 100 mg PO QAM 04/26/24 06/15/24 History capsule testosterone 50 mg implant pellet 65 mg implant DAILY 04/26/24 06/15/24 History thyroid (pork) 150 mg capsule 150 mg PO DAILY 04/26/24 06/15/24 History lactobacillus combination no.9 4 4,000 mmu cells PO DAILY 05/03/24 06/15/24 History billion cell capsule (Adult 50 Plus Probiotic) balsalazide 750 mg capsule 3,000 mg (4 x 750 mg) PO DAILY 3 05/06/24 06/15/24 Rx months #360 caps Allergies Allergy/AdvReac Type Severity Reaction Status Date / Time Sulfa (Sulfonamide Allergy Unknown Gastrointestinal Verified 06/15/24 06:13 Antibiotics) Upset Vital Signs Vital Signs - 24 hr 06/15/24 06:18 Temperature 97.2 F L Pulse Rate 94 Respiratory Rate 20 Blood Pressure 135/74 Pulse Oximetry 100 Oxygen Delivery Room Air Exam Const: General: cooperative and healthy appearing Resp: Effort & Inspection: normal respiratory effort and able to speak in complete sentences Auscultation: clear to auscultation bilaterally Cardio: Rate: regular rate Rhythm: regular rhythm GI: Inspection: normal to inspection GI Palp: No No hepatosplenomegaly present Auscultation: normal bowel sounds Rectal Exam: deferred Skin: General skin exam: normal color Psych: Appearance: grossly normal Mental Status: mental status grossly normal Assessment and Plan Assessment and plan (1) Ulcerative colitis: Onset Date: 2009 Qualifiers: Ulcerative colitis location: unspecified ulcerative colitis location Digestive disease complication type: without complication Qualified Code(s): K51.90 - Ulcerative colitis, unspecified, without complications Code(s): K51.90 - Ulcerative colitis, unspecified, without complications Status: Chronic Assessment and Plan: The patient is deemed a good candidate for the procedure. Consent signed. Will proceed.
[2024-06-15 08:02] VITALS: BP 141/90; PULSE 85; RESP 20; O2SAT 98
[2024-06-15 08:12] VITALS: BP 147/81; PULSE 80; RESP 20; O2SAT 98
[2024-06-15 08:22] VITALS: BP 147/89; PULSE 74; RESP 20; O2SAT 100
== END 2024-06-15 08:32 | disposition home or self-care (01) ==
PROVIDERS: PCP Family Medicine; Referring Provider Nurse Practitioner Family; Visit Provider Internal Medicine Gastroenterology
PROC: 0DJD8ZZ Inspection of Lower Intestinal Tract, Via Natural or Artificial Opening Endoscopic (ICD-10-PCS; CPT 45378; principal; 2024-06-15 07:30)
DX: Z12.11 Encounter for screening for malignant neoplasm of colon (principal); K64.0 First degree hemorrhoids; K57.30 Diverticulosis of large intestine without perforation or abscess without bleeding; E55.9 Vitamin D deficiency, unspecified; K21.9 Gastro-esophageal reflux disease without esophagitis; F41.9 Anxiety disorder, unspecified; Z98.890 Other specified postprocedural states; Z86.0100 Personal history of colon polyps, unspecified; Z87.42 Personal history of other diseases of the female genital tract; Z82.49 Family history of ischemic heart disease and other diseases of the circulatory system
CPT/HCPCS: 45378; J2704; J7120

== ENCOUNTER 2025-01-24 08:38 | Emergency (ER) | payer MEDICARE, SELFPAY ==
[2025-01-24 08:49] VITALS: BP 143/81; PULSE 90; RESP 16; TEMP 36.3; O2SAT 100
--- NOTE | 2025-01-24 09:07 | ED_ITS ---
HPI - Skin/Abscess/Foreign Bdy General Chief complaint: Skin/Abscess/Foreign Body Stated complaint: Poison Kelsi Time Seen by Provider: 01/24/25 08:40 Source: patient and RN notes reviewed Mode of arrival: ambulatory Limitations: no limitations History of Present Illness HPI narrative: 69-year-old female presents Express Care complaining of rash for approximately 1 week. Patient said she was doing yd work she believes she got the poison kelsi developed a rash to her bilateral elbows and arms. Since then the rash starting to spread near her waist she states. Patient has been trying Benadryl and anti itch cream without relief. Patient denies any fevers, body aches, chills nausea, vomiting, or any other symptoms. Patient denies any significant past medical problems. Related Data Home Medications ?Medication ?Instructions ?Recorded ?Confirmed ?Last Taken ?Type cyanocobalamin (vitamin B-12) 5,000 mcg PO DAILY 06/13/19 01/09/25 06/14/24 Hi story 5,000 mcg sublingual tablet (Vitamin B-12) omeprazole 20 mg capsule,delayed 20 mg PO DAILY 06/13/19 01/09/25 06/14/24 History release cholecalciferol (vitamin D3) 50 2,000 unit PO DAILY 07/26/19 01/09/25 06/14/24 History mcg (2,000 unit) tablet melatonin 3 mg tablet 3 mg PO QHS 04/26/24 01/09/25 06/13/24 History prasterone (DHEA) 10 mg tablet 10 mg PO DAILY 04/26/24 01/09/25 06/14/24 History progesterone micronized 100 mg 100 mg PO QAM 04/26/24 01/09/25 06/14/24 History capsule testosterone 50 mg implant pellet 65 mg implant DAILY 04/26/24 01/09/25 06/14/24 History thyroid (pork) 150 mg capsule 150 mg PO DAILY 04/26/24 01/09/25 06/14/24 History lactobacillus combination no.9 4 4,000 mmu cells PO DAILY 05/03/24 01/09/25 06/14/24 History billion cell capsule (Adult 50 Plus Probiotic) Allergies Allergy/AdvReac Type Severity Reaction Status Date / Time Sulfa (Sulfonamide Allergy Unknown Gastrointestinal Verified 01/24/25 08:48 Antibiotics) Upset Review of Systems Review of Systems: CONSTITUTIONAL: Denies fever, chills, or sweats. EYES: Denies visual changes, redness, or discharge. ENT: Denies rhinorrhea, congestion, sore throat, or otalgia. CARDIOVASCULAR: Denies chest pain, palpitations, or edema. RESPIRATORY: Denies cough or dyspnea. GASTROINTESTINAL: Denies abdominal pain, nausea, vomiting, or diarrhea. GENITOURINARY: Denies dysuria or hematuria. SKIN: Positive for rash and itching. MUSCULOSKELETAL: Denies back pain, joint pain, or myalgia. NEUROLOGIC: Denies headache, numbness, or weakness. PSYCHIATRIC: Denies anxiety or depression. All other systems reviewed are negative, except as documented in HPI. [facility] Past Medical History Medical History Hypothyroid History of endometriosis Vitamin D deficiency History of torn meniscus of left knee GERD without esophagitis Ulcerative colitis (2009) Last colonoscopy 06/2024. Anxiety Surgical History Surgical History History of hysterectomy (1994) History of laparoscopy For endometriosis History of tonsillectomy Age 7 Family History Family History Father Family history of atrial fibrillation pacemaker Mother Cerebrovascular accident brain bleed Son No problems noted. Social History Social History Social History: Surrogate medical decision maker: Federico Doan, spouse. Code status: Full code. Smoking status: Never smoker Second hand tobacco smoke exposure: No Alcohol intake: current Drinks per week: 2 Substance use: never Substance use type: does not use Do You Feel Safe in your Home?: Yes Lack of Transportation: No Lack of Food: Never True Current Housing: I Have Housing Concerned About Future Housing: No Difficulty Paying Gas/Electric Bills: No Difficulty Paying for Meds: No Currently Unemployed: No Education: Associate Degree Difficulty w/ Childcare or Family Care: No Living arrangements: with family Occupation/Education: retired Spiritual care concerns: No Agree to blood products: Yes Comments At the time of my signature, I reviewed and agree with the nursing past medical, surgical, social, and family history. There is no relevant family history pertinent to the patient complaint. Exam Narrative: GENERAL: This is a well-nourished, well-developed adult, in no apparent distress. They are non ill-appearing, nontoxic appearing. HEAD: normocephalic, atraumatic. EYES: Sclera clear/white. Conjunctiva normal. Vision is grossly intact. Extraocular movements intact EARS: External ears normal, Hearing grossly intact. NOSE: External nose normal THROAT: Mucous membranes moist, NECK: Neck supple, CARDIOVASCULAR: Regular rate and rhythm RESPIRATORY: Respiratory rate normal, respiratory effort nonlabored, no respiratory distress SKIN: Erythematous papular and vesicular pruritic rash primarily to the patie nt's bilateral medial elbows scattered throughout her bilateral arms and scattered around the patient's waist. No area of fluctuance, no induration, no exudate NEURO: awake, alert, and oriented to person, place and time. There were no obvious focal neurologic abnormalities. EXTREMITIES: No joint tenderness, effusion, or edema noted. Course Course Emergency Course: Portions of this record may have been created with voice recognition software Level of Care: Express Care Visit Vital Signs Vital signs: Vital Signs Temperature 97.3 F L 01/24/25 08:49 Pulse Rate 90 01/24/25 08:49 Respiratory Rate 16 01/24/25 08:49 Blood Pressure 143/81 H 01/24/25 08:49 Pulse Oximetry 100 01/24/25 08:49 Temperature 97.3 F L 01/24/25 08:49 Pulse Rate 90 01/24/25 08:49 Respiratory Rate 16 01/24/25 08:49 Blood Pressure 143/81 H 01/24/25 08:49 Pulse Oximetry 100 01/24/25 08:49 Reviewed MDM - Skin/Abscess/Foreign Bdy MDM Narrative Medical decision making narrative: Patient likely has contact dermatitis poison kelsi. Will prescribe prednisone and clobetasol cream. Discussed physical exam findings. Advised supportive measures and signs/symptoms to go to the ER. Pt is appropriate for outpt treatment and f/u. Differential Diagnosis Differential diagnosis: Likely cellulitis, impetigo and contact dermatitis Critical Care Time Critical Care Time Critical Care Time: No Discharge Plan Discharge Clinical Impression: Poison kelsi Patient Disposition: Home Condition: Stable Instructions: Poison Kelsi (ED) Additional Instructions: Take the prednisone as directed. Take it in the morning and take it with food. Use the clobetasol cream as directed, apply only to the affected area. Do not apply this cream to your face. You may use [id number] Tecnu soap as directed on the bottle to help remove the oils from poison kelsi off your skin. You may use calamine lotion, camphor, hydrocortisone cream Benadryl cream as needed for itchiness symptoms. You may also take Zyrtec or Claritin as needed for allergy or itchiness symptoms. Follow-up PCP in 3-5 days. If you develop any worsening redness, swelling, discharge, fevers, breathing problems, or any other concerns please go to the ER immediately. Patient Language: Canadian Prescriptions: New prednisone 20 mg tablet 40 mg PO DAILY 5 Days Qty: 10 0RF clobetasol 0.05 % cream 1 applic topical BID 14 Days Qty: 30 0RF Rx Instructions: Do not apply to face. Apply to the affected area. No Action cyanocobalamin (vitamin B-12) [Vitamin B-12] 5,000 mcg tablet, sublingual 5,000 mcg PO DAILY omeprazole 20 mg capsule,delayed release(DR/EC) 20 mg PO DAILY melatonin 3 mg tablet 3 mg PO QHS buspirone 5 mg tablet 5 mg PO DAILY PRN (Reason: anxiety) Qty: 90 1RF cholecalciferol (vitamin D3) 2,000 unit tablet 2,000 unit PO DAILY Adult 50 Plus Probiotic 4 billion cell capsule 4,000 mmu cells PO DAILY Rx Instructions: administer with a meal balsalazide 750 mg capsule 3,000 mg PO DAILY 90 Days Qty: 360 3RF Rx Instructions: 3000mg daily po per patient thyroid (pork) 150 mg capsule 150 mg PO DAILY testosterone 50 mg pellet 65 mg implant DAILY progesterone micronized 100 mg capsule 100 mg PO QAM prasterone (DHEA) 10 mg tablet 10 mg PO DAILY lisinopril 10 mg tablet See Rx Instructions .ROUTE .COMPLEX Qty: 90 3RF Dose Instruction: TAKE 1 TABLET BY MOUTH DAILY Rx Instructions: TAKE 1 TABLET BY MOUTH DAILY Follow-up/Referrals: Hernandez Ramos MD [Primary Care Provider] - Time of Disposition: 08:55
== END 2025-01-24 08:45 | disposition home or self-care (01) ==
PROVIDERS: PCP Family Medicine
DX: L23.7 Allergic contact dermatitis due to plants, except food (principal); E03.9 Hypothyroidism, unspecified; K21.9 Gastro-esophageal reflux disease without esophagitis; N80.9 Endometriosis, unspecified; E55.9 Vitamin D deficiency, unspecified
CPT/HCPCS: 99213; G0463